=== PATIENT | female | born 1955 | race African-American/Black ===

== ENCOUNTER 2016-12-07 22:23 | Emergency (ER) | payer MEDICARE, OTHER ==
--- NOTE | 2016-12-07 23:37 | ED Physician Documentation ---
Dyspnea - HISTORIAN Historian: patient, child - HPI Stated Complaint: soa, coughing up blood Chief Complaint: Dyspnea Additional Information: pt felt sob skore throat coughed up small bolus blood shape of pea then better- "ok now" but wanted to be checked Onset: hours (1hr) Duration: better Severity: mild Exacerbated By: nothing Associated Symptoms: none - ROS CONST: no problems EYES/ENT: none GI/: none NEURO/PSYCH: denies: headache MS/SKIN/LYMPH: none - PAST HX Lung Disease: none Cardiac Disease: AMI PE Risk Factors: hypertension Surgeries/Procedures: hysterectomy (mastectomy), other Allergies/Adverse Reactions: Allergies Allergy/AdvReac Type Severity Reaction Status Date / Time codeine Allergy Severe Hives Verified 12/07/16 22:44 Penicillins Allergy Severe Hives Verified 12/07/16 22:44 propranolol Allergy Severe Anaphylaxis Verified 12/07/16 22:44 azithromycin AdvReac Weakness Verified 12/07/16 22:44 Home Medications: Ambulatory Orders Medication Instructions Recorded Unobtainable [Unobtainable] 12/07/16 - SOCIAL HX Smoking History: non-smoker Alcohol Use: none Drug Use: none - FAMILY HX Family History: no significant history - VITAL SIGNS Vital Signs: Vital Signs Temp Pulse Resp BP Pulse Ox 85 16 147/75 98 12/07/16 22:25 12/07/16 22:25 12/07/16 22:25 12/07/16 22:25 - REVIEWED ASSESSMENTS Nursing Assessment Reviewed: Yes Vitals Reviewed: Yes ED Results Lab/Radiology - Lab Results Lab Results: ess normal - mild cardiomegally - Orders Orders: ED Orders Category Date Time Status CHEST 2 VIEW [CHEST P.A.&LAT 2 VIEWS] [RAD] Stat Exams 12/07/16 Taken EKG WITH COMPARISON Stat Ther 12/07/16 Ordered Dyspnea Physical Exam - EXAM General Appearance: mild distress, hyperventilating (gone now) EENT: eye inspection normal, ELIZABETH, TM's nml. No: pale conjunctivae, purulent nasal drainage, exudate, oral lesions Neck: nml inspection. No: lymphadenopathy Respiratory: No: no resp. distress, breath sounds nml (very slight post basal crepitance) CVS: reg. rate & rhythm, no murmur Abdomen: non-tender, no distention Skin: color nml, no rash. No: cyanosis, diaphoresis, pallor Extremities: non-tender, no edema Neuro/Psych: oriented x3, motor nml, sensation nml, mood/affect nml Discharge Clincal Impression: dyspnea improved after hemoptysis Referrals: Rickey Gomez MD [Primary Care Provider] - 2 Days Condition: Good Decision to Admit: NO Decision Time: 23:43
[2016-12-07 23:46] VITALS: BP 143/69
--- NOTE | 2016-12-08 06:20 | Diagnostic Imaging Report ---
LENORA TADEO [facility] [address] [facility] [address] [address] Report Submission Date: Dec 07, 2016 11:24:56 PM CDT Patient Study Name: STELLA BRINK Date: Dec 07, 2016 11:05:11 PM CDT Modality Type: CR Gender: F Description: CHEST : 51 Institution: [facility] Physician: LENORA TADEO Chest 2 views History: Shortness of breath and cough Findings: Right mastectomy and mild cardiomegaly are observed. The lungs are clear. No pleural effusions are observed. Pulmonary vascularity is normal. Impression: Cardiomegaly and right mastectomy. Electronically signed on Dec 07, 2016 11:24:56 PM CDT by: Bob ESPINO
== END 2016-12-07 23:37 | disposition home or self-care (01) ==
LOC: ED 22:23
DX: R06.09 Other forms of dyspnea (principal)
CPT/HCPCS: 71020; 99283